=== PATIENT | male | born 1960 | race Caucasian/White ===

== ENCOUNTER 2019-11-11 13:00 | Emergency (ER) | payer SELFPAY ==
[2019-11-11] VITALS (99 sets, daily range): BP systolic 123–192; BP diastolic 75–120; PULSE 44–76; RESP 10–28; TEMP 37; O2SAT 95–99
--- NOTE | 2019-11-11 13:00 | RT.EKG_ITS ---
APPROVED REPORT Exam: Resting ECG Patient Location: E HR:64 bpm ECG Measurements Heart Rate 64 AXIS MD 170 P 61 QRSd 107 QRS 47 QT 373 T 55 QTc 386 Conclusion Sinus. No acute ST/T wave ischemic findings.
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
[2019-11-11] MEDS: Aspirin 81 MG CHEW 324 MG CH (13:33)
[2019-11-11 13:35] LABS: Abs Immature Grans 0.02 10^3/uL (0.0-0.06); Absolute Basophil Count 0.07 10^3/uL (0.0-0.2); Absolute Eosinophil Count 0.04 10^3/uL (0.0-0.7); Absolute Lymphocyte Count 2.01 10^3/uL (1.2-3.4); Absolute Monocyte Count 0.52 10^3/uL (0.1-0.8); Absolute Neutrophil Count 7.42 10^3/uL (1.2-6.7); Basophils % 0.7; Eosinophils % 0.4; HCT 44.8 % (40.0-50.0); HGB 14.9 g/dL (13.5-17.5); Immature Grans % 0.2; Lymphocytes % 19.9; MCH 30.6 pg (27.0-33.0); MCHC 33.3 % (32.0-36.0); MPV 8.8 fL (8.0-11.0); Monocytes % 5.2; Neutrophils % 73.6; Nucleated RBC 0 %; Platelet Count 311 10^3/uL (130-400); RBC 4.87 10^6/uL (4.36-5.78); RDW 12.9 % (11.8-14.1); RDW-SD 43.8 fL; WBC 10.08 10^3/uL (4.4-10.8)
[2019-11-11] MEDS: nitroGLYcerin 0.4 MG TAB SL ×2 (13:37→13:48)
[2019-11-11 13:48] LABS: ALT 43 U/L (16-63); AST 26 U/L (15-37); Alkaline Phosphatase 77 U/L (46-116); Anion Gap 9.7 mmol/L (3-11); BUN 14 mg/dL (7-18); Bilirubin, Total 0.4 mg/dL (0.2-1.0); CO2 28.3 mmol/L (21.0-32.0); CREATININE 1.01 mg/dL (0.70-1.30); Calcium 9.2 mg/dL (8.5-10.1); Chloride 105 mmol/L (98-107); Glucose 121 mg/dL (74-106); Magnesium 1.9 mg/dL (1.8-2.4); Sodium 143 mmol/L (136-145); Total Protein 7.7 g/dL (6.4-8.2)
[2019-11-11 13:49] LABS: Troponin I < 0.05 ng/mL (<0.06)
[2019-11-11 13:59] LABS: NT-proBNP 78 pg/mL (<300)
[2019-11-11] MEDS: Omnipaque 350 MG/ML 100 ML BTL IJ (14:19)
[2019-11-11] MEDS: Normal Saline - Diluent 50 ML VIAL IV (14:19)
--- NOTE | 2019-11-11 14:25 | DI.CT_ITS ---
EXAM: CT CHEST PE CTA CLINICAL HISTORY: Left sided cp, r/o PE vs PNA. TECHNIQUE: Imaging Protocol: Axial CT angiography was performed with multi-slice acquisition and mu lti-planar and/or 3D reconstructions. CONTRAST MATERIAL: Intravenous: Omnipaque 350 Contrast volume:100 COMPARISON: No exams were available for comparison FINDINGS: Pulmonary Arteries: No evidence of filling defect to suggest pulmonary emboli. Tracheobronchial tree: Patent where visualized. Mediastinum and [place]: No dominant adenopathy or fluid collection. Pulmonary parenchyma: Calcified granuloma in the right lower lobe. No suspicious mass or evidence of infiltrate.. Pleura: No effusion or pneumothorax. Heart: The heart is not dilated. No coronary artery calcifications are seen. Aorta: Thoracic aorta non-dilated. Upper abdomen: Unremarkable. Bones: Mild degenerative disc changes. IMPRESSION: No evidence of pulmonary embolism. No evidence of pneumonia. RADIATION DOSE DELIVERED: 390.92mGy.cm Total DLP DATA REPOSITORY: All CT scans at this facility are submitted to the National Radiology Data Registry (NRDR) Dose Index Registry (DIR) with the [employer] (ACR). RADIATION OPTIMIZATION: All CT scans at this facility use at least one of these dose optimization te chniques: automated exposure control; mA and/or kV adjustment per patient size (includes targeted exa ms where dose is matched to clinical indication); or iterative reconstruction.
--- NOTE | 2019-11-11 16:15 | RT.EKG_ITS ---
APPROVED REPORT Exam: Resting ECG Patient Location: E HR:46 bpm ECG Measurements Heart Rate 46 AXIS WI 184 P 73 QRSd 108 QRS 30 QT 429 T 42 QTc 377 Conclusion Sinus. No acute ST/T wave ischemic findings. No acute change from previous.
[2019-11-11 16:43] LABS: Troponin I < 0.05 ng/mL (<0.06)
--- NOTE | 2019-11-11 18:21 | MCONE_ITS ---
Date of service: 11/11/19 Time of Service: 18:21 Assessment and Plan Assessment and plan (1) Chest pain: Status: Acute Assessment and plan: CP. This is patently radiating pain secondary to cervical stenosis. I see no need for further cardiac evaluation. History of Present Illness History of Present Illness Chief Complaint: CP Narrative: 59 male with h/o cervical stenosis, says he has had episodes of left upper chest/axillary pain for many years due to this. Spells typically occur when he is seated. Tolday while driving (in seated position) from [place] to [place] he noted chest pain which is identical to prior spells related to cervical stenosis. He decided though to come to ER because he was anxious he might be having a heart attack (he says he has been anxious in this way before and had a stress test last year which was negative). Here in ER EKG (with CP) normal, and trop neg x 2. I was asked to evaluate for possible admission for further evaluation. Patient tells me that he can abolish the pain by standing up. I ask him to do so -- and the pain resolves. Review of Systems All systems reviewed & are unremarkable except as noted in HPI and below PFSH Medical History Hyperlipidemia (Acute) Hypertension (Chronic) Social History Smoking/Tobacco Use Status: Current every day Tobacco Type: cigarettes Alcohol Intake: current Alcohol Intake frequency: a few times a week Drug use: Occasionally Substance use type: marijuana Do you feel safe at home: Yes Do you feel safe in your relationship?: Yes Exam Narrative Exam Narrative: 145/82, 48, 37.0, 18, 97% RA. HEENT unremarkable; neck supple; lungs clear; heart RRR w/o MRG; abdomen soft and NT; extremities w/o edema, pulse 2+/=; neuro ox3, motor 4/5 left hand intrinsics and triceps Results Last Vital Signs Temp 37.0 C 11/11/19 13:07 Pulse 54 L 11/11/19 17:16 Resp 18 11/11/19 17:20 BP 145/82 H 11/11/19 17:16 Pulse Ox 97 11/11/19 17:20 Labs Result diagrams: 11/11/19 13:22 11/11/19 13:22 Labs: Laboratory Results - last 24 hr 11/11/19 11/11/19 11/11/19 13:22 13:22 13:22 WBC 10.08 RBC 4.87 Hgb 14.9 Hct 44.8 MCV 92.0 MCH 30.6 MCHC 33.3 RDW 12.9 Plt Count 311 MPV 8.8 Immature Gran % 0.2 Neutrophils % 73.6 Lymphocytes % 19.9 Monocytes % 5.2 Eosinophils % 0.4 Basophils % 0.7 Nucleated RBC % 0 Absolute Neutrophils 7.42 H Absolute Lymphocytes 2.01 Absolute Monocytes 0.52 Absolute Eosinophils 0.04 Absolute Basophils 0.07 Sodium 143 Potassium 4.0 Chloride 105 Carbon Dioxide 28.3 Anion Gap 9.7 BUN 14 Creatinine 1.01 Estimated GFR/1.73 m2 >= 60.00 Glucose 121 H Calcium 9.2 Magnesium 1.9 Total Bilirubin 0.4 AST 26 ALT 43 Alkaline Phosphatase 77 Troponin I < 0.05 NT-Pro-B Natriuret Pep 78 Total Protein 7.7 Albumin 4.0 11/11/19 16:09 WBC RBC Hgb Hct MCV MCH MCHC RDW Plt Count MPV Immature Gran % Neutrophils % Lymphocytes % Monocytes % Eosinophils % Basophils % Nucleated RBC % Absolute Neutrophils Absolute Lymphocytes Absolute Monocytes Absolute Eosinophils Absolute Basophils Sodium Potassium Chloride Carbon Dioxide Anion Gap BUN Creatinine Estimated GFR/1.73 m2 Glucose Calcium Magnesium Total Bilirubin AST ALT Alkaline Phosphatase Troponin I < 0.05 NT-Pro-B Natriuret Pep Total Protein Albumin
== END 2019-11-11 18:45 | disposition home or self-care (01) ==
LOC: ER 18:46
PROVIDERS: Registered Nurse Emergency; Emergency Provider Physician Assistant
DX: R07.89 Other chest pain (principal); R00.1 Bradycardia, unspecified; I10 Essential (primary) hypertension; F17.210 Nicotine dependence, cigarettes, uncomplicated; R07.9 Chest pain, unspecified
CPT/HCPCS: 36415; 71275; 80053; 93005; 99252; 99283; 99285; 83735; 83880; 84484; 85025; 93010; 99284; J3490